=== PATIENT | female | born 1950 | race Caucasian/White ===

== ENCOUNTER 2020-03-30 21:15 | Inpatient (IN) | payer MEDICARE, OTHER ==
[~2020-03-30] VITALS: Ht 167.6 cm; Wt 113.9 kg
[2020-03-30 21:22] VITALS: BP 200/86
[2020-03-30] MEDS ORDERED: LIPITOR 20 MG T20 M1 PO (21:34)
[2020-03-30] MEDS ORDERED: CARVEDILOL12.5 MG PO (21:34)
[2020-03-30] MEDS ORDERED: NEURONTIN 300M300 M2 PO (21:35)
[2020-03-30] MEDS ORDERED: SANTYL OINTMENT30 G1 TOP (21:35)
[2020-03-30] MEDS ORDERED: HUMALOG JU100 UNIT/1 SUBQ (21:37)
[2020-03-30] MEDS ORDERED: HYDROCHLOROTHIA25 M2 PO (21:37)
[2020-03-30] MEDS ORDERED: HYDROCODON-ACE1 EAC7 PO (21:38)
[2020-03-30] MEDS ORDERED: MELOXICAM15 MG PO (21:40)
[2020-03-30] MEDS ORDERED: LEVEMIR100 UNIT/1 SUBQ (21:40)
[2020-03-30] MEDS ORDERED: SPIRONOLACTONE25 MG PO (21:41)
[2020-03-30 22:04] LABS: ABSOLUTE BASOPHILS 0.1 thou/uL (0.0-0.2); ABSOLUTE EOSINOPHILS 0.4 thou/uL (0.0-0.7); ABSOLUTE LYMPHOCYTES 2.5 thou/uL (0.8-5.3); ABSOLUTE MONOCYTES 0.6 thou/uL (0.0-1.2); ABSOLUTE NEUTROPHILS 5.3 thou/uL (1.6-8.1); BASOPHILS 0.7 %; HEMATOCRIT 39.7 % (37.0-47.0); LYMPHOCYTES 28.7 %; MCH 29.1 pg (26.0-34.0); MCHC 32.7 g/dL (28.0-37.0); MCV 89.2 fL (80.0-100.0); MONOCYTES 7.1 %; MPV 7.8 fl. (7.2-11.1); NUCLEATED RBCS 0 /100WBC; PLATELET COUNT* 186 thou/uL (150-400); POLYS 59.5 %; RBC 4.45 mil/uL (4.20-5.00); RDW-CV 13.4 % (10.5-14.5); WBC 8.8 thou/uL (4.0-11.0)
[2020-03-30 22:10] LABS: PROTIME 10.7 Seconds (9.20-11.50)
[2020-03-30 22:16] LABS: CALCIUM 8.6 mg/dL (8.5-10.1); CREATININE 1.5 mg/dL (0.6-1.3); POTASSIUM 5.2 mmol/L (3.5-5.1)
[2020-03-30 22:20] LABS: ALBUMIN 3.8 g/dL (3.4-5.0); MAGNESIUM 1.9 mg/dL (1.8-2.4); TOTAL BILIRUBIN 0.5 mg/dL (<0.1-1.0); TOTAL PROTEIN 7.8 g/dL (6.4-8.2)
[2020-03-30 23:59] LABS: BE -8.3 mmol/L (-2 to +3); PCO2 33.2 mmHg (35.0-45.0); PO2 93.7 mmHg (75.0-100.0); pH 7.322 (7.340-7.450)
[2020-03-31 01:30] VITALS: BP 126/51
[2020-03-31 02:05] VITALS: BP 138/56
[2020-03-31 02:20] LABS: URINE BILIRUBIN NEGATIVE (Negative); URINE BLOOD TRACE (Negative); URINE CLARITY CLEAR; URINE COLOR YELLOW; URINE GLUCOSE-RANDOM TRACE (Negative); URINE KETONES NEGATIVE (Negative); URINE LEUKOCYTES-REFLEX NEGATIVE (Negative); URINE NITRITE-REFLEX NEGATIVE (Negative); URINE PROTEIN NEGATIVE (Negative); URINE SPECIFIC GRAVITY 1.015 (1.005-1.030); URINE UROBILINOGEN 0.2 E.U./dl (0.2-1.0)
[2020-03-31] MEDS ORDERED: GLUCOPHAGE850 MG PO (05:37)
[2020-03-31] MEDS ORDERED: BACTRIM DS TAB1 EACH PO (05:38)
[2020-03-31 08:20] VITALS: BP 147/68
[2020-03-31 09:35] LABS: CHOLESTEROL 106 mg/dL (<200); HDL CHOLESTEROL 50 mg/dL (>40); LDL CHOLESTEROL 32 mg/dL (<100); TC:HDL 2.1 Ratio (Not establshd); TRIGLYCERIDE 123 mg/dL (<150); VLDL 25 mg/dL (<40)
[2020-03-31 09:37] LABS: SERUM ASSESSMENT Clear
[2020-03-31 12:00] VITALS: BP 144/62
--- NOTE | 2020-03-31 17:42 | 2DMMODE ---
[place] [address] 2 D/M-MODE ECHOCARDIOGRAM Name: ROGELIO MARINA Room: [address] IN [facility]#: [id number] Admission: 03/30/20 Attend Phys: Regi Gu Discharge: Date of : 46 Date of Service: 03/31/20 1741 Report #: [id number] THIS REPORT FOR: cc: Mike Arita MD, Richard K. MD Holkins, John M. MD [facility] ~ APPROVED REPORT Study performed: 03/31/2020 10:20:28 EXAM: Comprehensive 2D, Doppler, and color-flow Echocardiogram Patient Location: In-Patient Room #: [facility] Status: routine BSA: 2.20 HR: 78 bpm BP: 147/68 mmHg Rhythm: NSR Other Information Study Quality: Good Indications CAD Resp failure 2D Dimensions IVSd: 13.15 (7-11mm) LVOT Diam: 23.22 (18-24mm) LVDd: 53.02 mm PWd: 13.79 (7-11mm) Ascending Ao: 33.32 (22-36mm) LVDs: 39.98 (25-40mm) Aortic Root: 35.12 mm Volumes Left Atrial Volume (Systole) LA ESV Index: 36.40 mL/m2 Aortic Valve AoV Peak Brian.: 1.93 m/s AO Peak Gr.: 14.92 mmHg LVOT Max P.09 mmHg AO Mean Gr.: 8.61 mmHg LVOT Mean P.16 mmHg LVOT Max V: 0.72 m/s AO V2 VTI: 43.28 cm LVOT Mean V: 0.51 m/s CARLI (VTI): 1.86 cm2 LVOT V1 VTI: 18.96 [place] [address] 2 D/M-MODE ECHOCARDIOGRAM Name: ROGELIO MARINA Room: [address] [place] [facility]#: [id number] Admission: 03/30/20 Attend Phys: Regi Gu Discharge: Date of : 46 Date of Service: 03/31/20 1741 Report #: [id number] Mitral Valve E/A Ratio: 1.26 MV Decel. Time: 134.68 ms MV E Max Brian.: 1.21 m/s MV PHT: 39.06 ms MVA (PHT): 5.63 cm2 TDI E/Lateral E': 13.44 E/Medial E': 17.29 Medial E' Brian.: 0.07 m/s Lateral E' Brian.: 0.09 m/s Pulmonary Valve PV Peak Brian.: 0.90 m/s PV Peak Gr.: 3.21 mmHg Tricuspid Valve RAP Estimate: 5.00 mmHg TR Peak Gr.: 52.59 mmHg RVSP: 57.00 mmHg PA Pressure: 57.00 mmHg Left Ventricle The left ventricle is normal size. There is normal LV segmental wall motion. Borderline concentric left ventricular hypertrophy. Left ventricular systolic function is mildly decreased. LVEF is 45-50%. The left ventricular diastolic function is normal. Right Ventricle The right ventricle is normal size. The right ventricular systolic function is normal. Atria Left atrium is mildly dilated. The right atrium size is normal. Aortic Valve Mild aortic valve sclerosis. No aortic regurgitation is present. No hemodynamically significant valvular aortic stenosis. Mitral Valve Mild mitral annular calcification. Mild mitral regurgitation. No evidence of mitral valve stenosis. Tricuspid Valve The tricuspid valve is normal in structure. Mild tricuspid regurgitation. Mod[place] [address] 2 D/M-MODE ECHOCARDIOGRAM Name: ROGELIO MARINA Room: [address]#: [id number] Admission: 03/30/20 Attend Phys: Regi Gu Discharge: Date of : 46 Date of Service: 03/31/20 1741 Report #: [id number] Pulmonic Valve The pulmonary valve is normal in structure. There is no pulmonic valvular regurgitation. Great Vessels The aortic root is normal in size. IVC is normal in size and collapses >50% with inspiration. Pericardium There is no pericardial effusion. <Conclusion> The left ventricle is normal size. Borderline concentric left ventricular hypertrophy. Left ventricular systolic function is mildly decreased. LVEF is 45-50%. The right ventricle is normal size. Left atrium is mildly dilated. Mild aortic valve sclerosis. No aortic regurgitation is present. No hemodynamically significant valvular aortic stenosis. Mild mitral annular calcification. Mild mitral regurgitation. No evidence of mitral valve stenosis. The tricuspid valve is normal in structure. Mild tricuspid regurgitation. Moderate pulmonary hypertension. IVC is normal in size and collapses >50% with inspiration. There is no pericardial effusion. There is normal LV segmental wall motion. <ELECTRONICALLY SIGNED> By: Varinder Schumacher MD, FACC 03/31/201740 40 40 Varinder Schumacher MD, FACC /INF
[2020-03-31 18:34] VITALS: BP 131/46
[2020-03-31 20:14] VITALS: BP 143/58
[2020-04-01] VITALS (9 sets, daily range): BP systolic 139–161; BP diastolic 60–79
[2020-04-01 05:17] LABS: ABSOLUTE LYMPHOCYTES 1.9 thou/uL (0.8-5.3); ABSOLUTE MONOCYTES 0.6 thou/uL (0.0-1.2); ABSOLUTE NEUTROPHILS 6.3 thou/uL (1.6-8.1); BASOPHILS 0.4 %; EOSINOPHILS 0.2 %; HEMATOCRIT 35.2 % (37.0-47.0); HEMOGLOBIN 11.6 gm/dL (12.0-15.0); LYMPHOCYTES 21.2 %; MCH 28.6 pg (26.0-34.0); MCHC 32.9 g/dL (28.0-37.0); MCV 86.9 fL (80.0-100.0); MONOCYTES 6.6 %; MPV 7.7 fl. (7.2-11.1); NUCLEATED RBCS 0 /100WBC; PLATELET COUNT* 179 thou/uL (150-400); POLYS 71.6 %; RBC 4.04 mil/uL (4.20-5.00); RDW-CV 13.4 % (10.5-14.5); WBC 8.8 thou/uL (4.0-11.0)
[2020-04-01 05:24] LABS: CALCIUM 9.1 mg/dL (8.5-10.1); CREATININE 1.5 mg/dL (0.6-1.3); POTASSIUM 4.7 mmol/L (3.5-5.1)
--- NOTE | 2020-04-01 08:59 | EKG ---
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[place] : 1950 Requested By: Chelle Webster Order Number: [id number] MD: Rick Aguilar Measurements Intervals [place] Rate: 99 P: AL: QRS: -54 QRSD: 127 T: 64 QT: 397 QTc: 510 Interpretive Statements Atrial fibrillation Nonspecific IVCD with LAD Left ventricular hypertrophy Anterior infarct, old ST elevation, consider inferior injury Baseline wander in lead(s) I,II,aVR No previous ECG available for comparison Electronically Signed On 04-01-2020 8:59:10 INSULATION APPLICATOR by Rick Aguilar [email or web address] <ELECTRONICALLY SIGNED> By: Gemma Aguilar MD, FACC 04/01/2059 22 22 Gemma Aguilar MD, FAC /EPI
--- NOTE | 2020-04-01 09:00 | EKG ---
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[place] : 1950 Requested By: Chelle Webster Order Number: [id number] MD: Rick Aguilar Measurements Intervals [place] Rate: 68 P: 27 DE: 206 QRS: -56 QRSD: 137 T: 46 QT: 473 QTc: 504 Interpretive Statements Sinus rhythm Nonspecific IVCD with LAD Left ventricular hypertrophy Anterior infarct, old Compared to ECG 03/30/2020 21:23:21 Atrial fibrillation no longer present ST (T wave) deviation no longer present Myocardial infarct finding still present Electronically Signed On 04-01-2020 9:00:00 CALIBRATION ENGINEER by Rick Aguilar [email or web address] <ELECTRONICALLY SIGNED> By: Gemma Aguilar MD, FACC 04/01/20 0900 0003 0003 Gemma Aguilar MD, [facility] /EPI
--- NOTE | 2020-04-01 15:44 | EKG ---
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: : 1950 Requested By: Varinder Schumacher Order Number: [id number] Reading MD: Rick Aguilar Measurements Intervals [place] Rate: 74 P: 0 [place]: 203 QRS: -33 QRSD: 117 T: 146 QT: 419 QTc: 465 Interpretive Statements Sinus rhythm Ventricular premature complex LVH with secondary repolarization abnormality Inferior infarct, old Anterior infarct, old Compared to ECG 03/31/2020 00:03:50 Ventricular premature complex(es) now present Early repolarization now present Intraventricular conduction delay no longer present Myocardial infarct finding still present Electronically Signed On 04-01-2020 15:44:01 DIRECTOR CARDIOLOGY by Rick Aguilar [email or web address] <ELECTRONICALLY SIGNED> By: Gemma Aguilar MD, FACIndu 04/01/20 1544 1415 141 Gemma Aguilar MD, [facility] /EPI
--- NOTE | 2020-04-01 16:02 | CARD ---
[address] [address] CARDIAC CATH REPORT Name: ROGELIO MARINA Room: [address] IN [facility].#: [id number] Admission: 03/30/20 Attend Phys: Shira Li Discharge: Date of : 46 Report #: [id number] THIS REPORT FOR: //name// cc: Mike Arita MD, Richard K. MD ~ APPROVED REPORT Study performed: 04/01/2020 11:37:00 Patient Details Patient Status: In-Patient Room #: 119 The patient is a 69 year-old female Event Personnel Varinder Schumacher Otr Truck Driver, Coleen Vann RN Dianetic Counselor, Awilda Robles RTR Monitor, Melissa Kumar RTR Scrub Procedures Performed Art Access - R femoral artery, Left Heart Cath w/or w/o Coronaries LHC, LUDIVINA Place w/wo Plasty Single LAD , Hemostasis w/ Angioseal Indication Non-STEMI Risk Factors Dysplipidemia Obesity, Diabetes Admission/Lab Medications/Medications given during procedure Angiomax IV 17 ml, Angiomax Drip IV 39.83 ml per hr, Effient PO 60 mg, Aspirin PO 162 mg Procedure Narrative The patient was brought electively to the Cardiac Catheterization Laboratory and was prepped and draped in a sterile manner. The right femoral was infiltrated with 2% Lidocaine subcutaneous anesthesia. A 6F Eglon sheath was inserted into the right femoral artery. Coronary angiography was performed using coronary diagnostic catheters. The right coronary system was accessed and visualized with a 6F JR4 catheter. The left coronary system was accessed and visualized with a 6F JL4 catheter. The left ventricle was accessed and visualized with a 6F Straight Pigtail catheter. Left ventricular/Aortic Valve gradient assessed via catheter pullback. Left ventriculogram was performed in [place] [address] CARDIAC CATH REPORT Name: ROGELIO MARINA Room: [address] IN ..#: [id number] Admission: 03/30/20 Attend Phys: Shira Li Discharge: Date of : 46 Report #: [id number] femoral angiogram was performed . Closure device was deployed with a 6 Fr Angioseal STS. The patient tolerated the procedure well and there were no complications associated with the procedure. There was no hematoma. Intraoperative Conscious Sedation Sedation start time: 12:32 Case end Time: 13:23 Fentanyl 50 mcg Versed 2 mg Fluoro Time: 14.1 minutes Dose: DAP 010969 cGycm2 2392 mGy Contrast Type and Amount: Visipaque 260 ml Coronary Angiography The patient's coronary anatomy is right dominant. Diagnostic Cath Left Main 0% narrowing LAD 80% proximal and mid LAD stenoses Circumflex 30% mid vessel narrowing Right Coronary Dominant vessel with 30% proximal and distal narrowings Left Ventriculography The left ventricle is normal in size with normal contractility. The left ventricular ejection fraction is estimated to be 55%. Left ventricular wall motion abnormalities are not present. There is no mitral insufficiency. Mitral valve prolapse was noted Hemodynamics The aortic pressure is 167/73 mmHg with a mean of 108 mmHg. The left ventricular pressure is 171/13 mmHg with a mean of mmHg. The left ventricular end diastolic pressure is 31 mmHg. There was no gradient across the aortic valve upon pullback. PCI Technique Lesion Anticoagulation was achieved with Angiomax. Patient was preloaded with Angiomax IV 17 ml. Percutaneous coronary intervention was performed on the proximal left anterior descending artery segment. The lesion stenosis prior to intervention was 80% with CRAIE 3 flow. A 6F XB LAD 3.5 Guide Catheter was used to engage the lm ostium. A BMW 190cm Interventional Guidewire was used to cross the [place] [address] CARDIAC CATH REPORT Name: ROGELIO MARINA Room: [address] IN [facility]#: [id number] Admission: 03/30/20 Attend Phys: Shira Li Discharge: Date of : 46 Report #: [id number] A Balloon catheter Trek RX 2.5 X 12 was inserted and inflated up to 18.00atm for 14seconds. STENT DEPLOYMENT A drug-eluting stent Mohawk RX Stent 3.0X12mm was inserted and inflated up to 14.00atm for 13seconds. POST STENT DEPLOYMENT BALLOON DILATION A Balloon catheter NC Trek RX 3.0 X 8 was inserted and inflated up to 15.00atm for 10seconds. Additional Inflation: 17.00atm for 9seconds. Final angiography reveals 10 % stenosis with CARIE 3 flow. PCI Technique Lesion 2 Percutaneous Coronary Intervention was performed on the mid left anterior descending artery segment. Patient was preloaded with Angiomax IV 17 ml. The lesion stenosis prior to intervention was 80% with CARIE 3 flow. A 6F XB LAD 3.5 Guide Catheter was used to engage the lm ostium. A BMW 190cm Interventional Guidewire was used to cross the lesion. Balloon Dilation A Balloon catheter Trek RX 2.5 X 12 was inserted and inflated up to 12.00atm for 10seconds. Stent Deployment A drug-eluting stent John RX Stent 2.5X12mm was inserted and inflated up to 12.00atm for 8seconds. Additional Inflation: 14.00atm for 9seconds. Post Stent Deployment Balloon Dilation A Balloon catheter NC Trek RX 2.5 X 8 was inserted and inflated up to 15.00atm for 11seconds. Additional Inflation: 16.00atm for 8seconds. Final angiography reveals 0 % stenosis with CARIE 3 flow. Conclusion 1. Significant coronary artery disease characterized by the following: A 80% proximal and mid LAD stenoses B 30% [place] [address] CARDIAC CATH REPORT Name: ROGELIO MARINA Room: [address]#: [id number] Admission: 03/30/20 Attend Phys: Shira Li Discharge: Date of : 46 Report #: [id number] C dominant right coronary with 30% proximal and distal narrowings 2. Normal left ventricular systolic function, estimated ejection fraction being 55% 3. Mitral valve prolapse without significant mitral regurgitation 4. Moderate systemic systolic hypertension with significant elevation of left ventricular end diastolic pressure at rest 5. Successful PCI with deployment of drug-eluting stents at the sites of 80% proximal and mid LAD stenosis with 10 and 0% residual narrowings and CARIE-3 flow to the distal vessel Recommendations Cardiac Risk Reduction Program Aggressive Medical Therapy Medications Administered Aspirin (any) Prasugrel Diagnostic Cath Approved by: Varinder Schumacher MD Date/Time: 04/01/2020 16:00:22 <ELECTRONICALLY SIGNED> By: Varinder Schumacher MD, FACC 04/01/20 1602 01 160Varinder Schumacher MD, FACC /INF
[2020-04-02] VITALS (7 sets, daily range): BP systolic 111–154; BP diastolic 50–79
[2020-04-02 04:25] LABS: ALBUMIN 3.4 g/dL (3.4-5.0); CALCIUM 9.2 mg/dL (8.5-10.1); CREATININE 1.3 mg/dL (0.6-1.3); POTASSIUM 4.4 mmol/L (3.5-5.1); TOTAL BILIRUBIN 0.8 mg/dL (<0.1-1.0); TOTAL PROTEIN 6.7 g/dL (6.4-8.2)
[2020-04-02 04:42] LABS: ABSOLUTE EOSINOPHILS 0.3 thou/uL (0.0-0.7); ABSOLUTE LYMPHOCYTES 2.5 thou/uL (0.8-5.3); ABSOLUTE MONOCYTES 0.7 thou/uL (0.0-1.2); BASOPHILS 0.5 %; EOSINOPHILS 3.2 %; HEMATOCRIT 34.1 % (37.0-47.0); HEMOGLOBIN 11.6 gm/dL (12.0-15.0); LYMPHOCYTES 29.7 %; MCH 29.5 pg (26.0-34.0); MCHC 33.9 g/dL (28.0-37.0); MCV 86.9 fL (80.0-100.0); MONOCYTES 8.1 %; MPV 7.7 fl. (7.2-11.1); NUCLEATED RBCS 0 /100WBC; PLATELET COUNT* 157 thou/uL (150-400); POLYS 58.5 %; RBC 3.92 mil/uL (4.20-5.00); RDW-CV 13.4 % (10.5-14.5); WBC 8.5 thou/uL (4.0-11.0)
[2020-04-02] MEDS ORDERED: NITROGLYCERIN0.4 MG SUBLING (08:38)
[2020-04-02] MEDS ORDERED: EFFIENT10 MG PO (08:38)
[2020-04-02] MEDS ORDERED: ASPIR 8181 MG PO (08:38)
--- NOTE | 2020-04-02 13:19 | EKG ---
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: [place] : 1950 Requested By: Varinder Schumacher Order Number: [id number] Reading MD: Varinder Schumacher Measurements Intervals [place] Rate: 71 P: 26 SC: 191 QRS: -65 QRSD: 120 T: 69 QT: 460 QTc: 500 Interpretive Statements Sinus rhythm Ventricular premature complex Nonspecific IVCD with LAD Left ventricular hypertrophy Inferior infarct, old Anterior infarct, old Compared to ECG 04/01/2020 14:15:42 Intraventricular conduction delay now present Early repolarization no longer present Myocardial infarct finding still present Electronically Signed On 04-02-2020 13:19:24 SANITATION ASSOCIATE by Varinder Schumacher [email or web address] <ELECTRONICALLY SIGNED> By: Varinder Schumacher MD, FACC 04/02/20 1319 9 9 Varinder Schumacher MD, FACC /EPI
== END 2020-04-02 13:30 | disposition home health service (06) | DRG 246 ==
LOC: M.ERS 21:15 → M.TBA-ER 23:55 → M.ORTHSURG 23:55 → M.2W 04-01 15:58
PROVIDERS: Emergency Medicine; Internal Medicine; Registered Nurse; ADMIT Internal Medicine; ATTEND Internal Medicine
PROC: 027035Z Dilation of Coronary Artery, One Artery with Two Drug-eluting Intraluminal Devices, Percutaneous Approach (ICD-10-PCS; principal; 2020-04-01)
PROC: 4A023N7 Measurement of Cardiac Sampling and Pressure, Left Heart, Percutaneous Approach (ICD-10-PCS; principal; 2020-04-01)
PROC: B215YZZ Fluoroscopy of Left Heart using Other Contrast (ICD-10-PCS; principal; 2020-04-01)
PROC: B211YZZ Fluoroscopy of Multiple Coronary Arteries using Other Contrast (ICD-10-PCS; principal; 2020-04-01)
DX: I21.4 Non-ST elevation (NSTEMI) myocardial infarction (principal); J15.6 Pneumonia due to other Gram-negative bacteria; I50.43 Acute on chronic combined systolic (congestive) and diastolic (congestive) heart failure; J96.00 Acute respiratory failure, unspecified whether with hypoxia or hypercapnia; I13.0 Hypertensive heart and chronic kidney disease with heart failure and stage 1 through stage 4 chronic kidney disease, or unspecified chronic kidney disease; N17.9 Acute kidney failure, unspecified; E11.65 Type 2 diabetes mellitus with hyperglycemia; N18.9 Chronic kidney disease, unspecified; E11.22 Type 2 diabetes mellitus with diabetic chronic kidney disease; E78.5 Hyperlipidemia, unspecified; E87.5 Hyperkalemia; I25.10 Atherosclerotic heart disease of native coronary artery without angina pectoris; Z20.828 Contact with and (suspected) exposure to other viral communicable diseases; Z79.4 Long term (current) use of insulin; Z79.899 Other long term (current) drug therapy; Z88.5 Allergy status to narcotic agent

== ENCOUNTER 2020-04-22 19:56 | Inpatient (IN) | payer MEDICARE, OTHER ==
[~2020-04-22] VITALS: Ht 167.6 cm; Wt 101.6 kg
--- NOTE | ~2020-04-22 | EMS ---
[address] [address] EMS Patient Care Report Name: ROGELIO MARINA Room: [facility] Alfa#: [id number] Admission: 04/22/20 Attend Phys: Discharge: Date of : 46 Report #: [id number] THIS REPORT FOR: //name// Report Transmitted: 04/22/2020 20:37 EMS Care Summary [facility] [place] Incident [id number] @ 04/22/2020 19:08 Incident Location [address] [place] [address] Patient Rogelio Marina Female, 69 Years 1950 Patient Address [address] [place] [address] Patient History Presence of coronary angioplasty implant and graft,Endocrine Condition - Other,Hypertension (HTN), Patient Allergies , Patient Medications Toprol, Chief Complaint Weakness Disposition Transported No Lights/[place] Dispatch Reason Falls Transported To [facility] Narrative pt found a/o sitting upright on floor in living room. pt explained that she was trying to stand to answer door when her legs gave out and she fell striking her back on a bookshelf. She said that she may have felt dizzy before the fall but [address] [address] EMS Patient Care Report Name: ROGELIO MARINA Room: [facility] Alfa#: [id number] Admission: 04/22/20 Attend Phys: Discharge: Date of : 46 Report #: [id number] she cannot remember. She denied sob, denied chest pain, denied hitting her head. She said that she has been weak since present day evening, but not this morning. She said that she has developed chills and body aches. She has not had a cough, no sore throat. Vitals assessed. Pt is assisted to stand and step to EMS cot immediately outside her front door. pt secured with all straps. In ambulance 12 lead obtained, iv access established and transport commenced to [facility]. en route, pt rested on ems cot and was conversational and weak. Radio report called, vitals reassessed. Upon arrival, pt condition unchanged. transport signature obtained. pt escorted inside where she was transferred to er bed via draw sheet. care transferred. Initial Vitals @19:17SpO2: 94, @19:25SpO2: 94, @19:27SpO2: 97, @19:30SpO2: 93, @19:28 @19:31 @19:32 @19:14P: 103,R: 22,BP: 173/80, @19:48P: 97,R: 18,BP: 164/90, @19:14GCS: 15, @19:48GCS: 15, @19:33Glucose: 226, Assessments @19:14MENTAL:SKIN:HEENT:LUNG SOUNDS:ABDOMEN:PELVIS//GI:EXTREMITIES:PULSE:NEURO: Impression Generalized Weakness Procedures @19:32 cc () Site: Forearm-LeftResponse: UnchangedSucceeded@19:2812-Lead ECGResponse: UnchangedSucceeded@19:3112-Lead ECGResponse: UnchangedSucceeded@19:323-Lead ECGResponse: UnchangedSucceeded Timeline 15:14,Call Received 19:08,Dispatch Notified 19:08,Psap Call 19:08,Dispatched 19:08,En Route 19:13,On Scene 19:14,At Patient 19:14,BP: 173/80 M,PULSE: 103,RR: 22 R,SPO2: Ox,ETCO2: ,BG: ,PAIN: ,GCS: , [place] [address] EMS Patient Care Report Name: MARINACHRISRashawn Alvarez Room: [facility]#: [id number] Admission: 04/22/20 Attend Phys: Discharge: Date of : 46 Report #: [id number] 19:14,BP: / M,PULSE: ,RR: R,SPO2: Ox,ETCO2: ,BG: ,PAIN: ,GCS: 15, 19:17,BP: / M,PULSE: ,RR: R,SPO2: 94 Ox,ETCO2: ,BG: ,PAIN: ,GCS: , 19:25,BP: / M,PULSE: ,RR: R,SPO2: 94 Ox,ETCO2: ,BG: ,PAIN: ,GCS: , 19:27,BP: / M,PULSE: ,RR: R,SPO2: 97 Ox,ETCO2: ,BG: ,PAIN: ,GCS: , 19:28,12-Lead ECG,Response: UnchangedSucceeded, 19:28,BP: / M,PULSE: ,RR: R,SPO2: Ox,ETCO2: ,BG: ,PAIN: ,GCS: , 19:30,BP: / M,PULSE: ,RR: R,SPO2: 93 Ox,ETCO2: ,BG: ,PAIN: ,GCS: , 19:31,12-Lead ECG,Response: UnchangedSucceeded, 19:31,BP: / M,PULSE: ,RR: R,SPO2: Ox,ETCO2: ,BG: ,PAIN: ,GCS: , 19:32, cc Site: Forearm-Left,Response: UnchangedSucceeded, 19:32,3-Lead ECG,Response: UnchangedSucceeded, 19:32,BP: / M,PULSE: ,RR: R,SPO2: Ox,ETCO2: ,BG: ,PAIN: ,GCS: , 19:33,BP: / M,PULSE: ,RR: R,SPO2: Ox,ETCO2: ,B,PAIN: ,GCS: , 19:35,Depart Scene 19:48,BP: 164/90 M,PULSE: 97,RR: 18 R,SPO2: Ox,ETCO2: ,BG: ,PAIN: ,GCS: , 19:48,BP: / M,PULSE: ,RR: R,SPO2: Ox,ETCO2: ,BG: ,PAIN: ,GCS: 15, 19:51,At Destination 20:15,Call Closed Disclaimer v1.1 Copyright 2020 [employer], [employer] This EMS Care Summary contains data elements from the applicable legal record (which may be displayed differently). It is designed to provide pertinent information for the following purposes: continuity of care, clinical quality, and state data reporting. The complete legal record is available to ED staff and administrators of the receiving hospital in [employer] Patient Tracker. All data is provided "as is."
--- NOTE | ~2020-04-22 | PROC ---
[address] [address] PROCEDURE REPORT Name: ROGELIO MARINA Room: [address] IN M.R.#: [id number] Admission: 04/22/20 Attend Phys: Shira Li Discharge: 04/25/20 Date of : 46 Report #: [id number] THIS REPORT FOR: cc: Mike Arita MD, Richard K. MD ~ [facility],Medical Records Staff For GI report, please see the Provation report in Perceptive 7 content. By: 1451Medical Records Staff [facility] /ALMA
[2020-04-22 19:56] VITALS: BP 249/110
[~2020-04-22 19:56] MED LIST: ASPIR 8181 MG PO; BACTRIM DS TAB1 EACH PO; CARVEDILOL12.5 MG PO; EFFIENT10 MG PO; GLUCOPHAGE850 MG PO; HUMALOG JU100 UNIT/1 SUBQ; HYDROCHLOROTHIA25 M2 PO; HYDROCODON-ACE1 EAC7 PO; LEVEMIR100 UNIT/1 SUBQ; LIPITOR 20 MG T20 M1 PO; MELOXICAM15 MG PO; NEURONTIN 300M300 M2 PO; NITROGLYCERIN0.4 MG SUBLING; SANTYL OINTMENT30 G1 TOP; SPIRONOLACTONE25 MG PO
[2020-04-22] MEDS ORDERED: MELOXICAM15 MG PO ×2 (20:03)
[2020-04-22] MEDS ORDERED: HYDROCHLOROTHIA25 M2 PO ×2 (20:03)
[2020-04-22] MEDS ORDERED: EFFIENT5 MG PO ×2 (20:04)
[2020-04-22 20:53] LABS: INFLUENZA A ANTIGEN Negative (Negative); INFLUENZA B ANTIGEN Negative (Negative)
[2020-04-22 20:56] LABS: HEMATOCRIT 37.7 % (37.0-47.0); HEMOGLOBIN 12.5 gm/dL (12.0-15.0); MCH 28.9 pg (26.0-34.0); MCHC 33.3 g/dL (28.0-37.0); MCV 86.9 fL (80.0-100.0); MPV 7.6 fl. (7.2-11.1); NUCLEATED RBCS 0 /100WBC; PLATELET COUNT* 164 thou/uL (150-400); RBC 4.34 mil/uL (4.20-5.00); RDW-CV 13.8 % (10.5-14.5); WBC 21.3 thou/uL (4.0-11.0)
[2020-04-22 21:04] LABS: CALCIUM 8.9 mg/dL (8.5-10.1); CREATININE 1.5 mg/dL (0.6-1.3); POTASSIUM 5.7 mmol/L (3.5-5.1)
[2020-04-22 21:07] LABS: APTT 22.6 Seconds (25.0-31.3)
[2020-04-22 21:08] LABS: ALBUMIN 3.6 g/dL (3.4-5.0); TOTAL BILIRUBIN 1.1 mg/dL (<0.1-1.0)
[2020-04-22 21:09] LABS: INR 1.1; PROTIME 11.3 Seconds (9.20-11.50)
[2020-04-22 21:26] LABS: ABSOLUTE LYMPHOCYTES 0.4 thou/uL (0.8-5.3); ABSOLUTE MONOCYTES 0.4 thou/uL (0.0-1.2); ABSOLUTE NEUTROPHILS 20.4 thou/uL (1.6-8.1)
[2020-04-22 21:28] LABS: PLATELET ESTIMATE ADEQUATE
[2020-04-22 23:54] VITALS: BP 158/70
[2020-04-23 00:30] VITALS: BP 120/57
[2020-04-23 04:00] VITALS: BP 138/58
--- NOTE | 2020-04-23 05:13 | NUR ---
PT RECIEVED FORM ED IN ROOM 232. ALERT AND ORIENTED X4. C/O PAIN, MEDICATION GIVEN PER EMAR. CALL LIGHT WITHIN REACH AND BED IN LOW POSITION. HOURLY ROUNDING DONE FOR PT SAFETY.
[2020-04-23 05:48] LABS: HEMATOCRIT 34.9 % (37.0-47.0); HEMOGLOBIN 11.3 gm/dL (12.0-15.0); MCH 28.7 pg (26.0-34.0); MCHC 32.4 g/dL (28.0-37.0); MCV 88.4 fL (80.0-100.0); RBC 3.94 mil/uL (4.20-5.00); RDW-CV 13.7 % (10.5-14.5); WBC 17.9 thou/uL (4.0-11.0)
[2020-04-23 05:57] LABS: ALBUMIN 3.2 g/dL (3.4-5.0); CALCIUM 7.7 mg/dL (8.5-10.1); CREATININE 1.4 mg/dL (0.6-1.3); TOTAL BILIRUBIN 0.7 mg/dL (<0.1-1.0); TOTAL PROTEIN 6.2 g/dL (6.4-8.2)
[2020-04-23 06:02] LABS: POTASSIUM 6.1 mmol/L (3.5-5.1)
[2020-04-23 08:00] VITALS: BP 121/49
--- NOTE | 2020-04-23 10:13 | NUR ---
CM SPOKE TO THE PT TO DISCUSS CM ASSESSMENT. PT KNOW TO THIS CM FROM PREVIOUS ADMISSION. PT A&O, INDEPENDENT WITH ADL'S, ACTIVE AND DRIVES. PT RESIDES AT HOME ALONE. HH ARRANGED FOR PT AT LIST D/C. HOWEVER PT DECLINED HH ONCE AT HOME. 0 SNF HX. CM WILL REMAIN AVAILABLE TO ASSIST AND FOLLOW NEEDED.
[2020-04-23 12:32] VITALS: BP 115/43
--- NOTE | 2020-04-23 14:24 | CON ---
[address] [address] CONSULTATION Name: ROGELIO MARINA Room: [address] IN M.R.#: [id number] Admission: 04/22/20 Attend Phys: Shira Li Discharge: Date of : 46 Report #: [id number] THIS REPORT FOR: cc: Mike Arita MD, Richard K. MD ~ Nelli Mcdaniel MD DATE OF SERVICE: 04/23/2020 Please note at the time of this dictation, the patient was seen and physically examined by myself. REASON FOR CONSULTATION: Nausea, dry heaves and abnormal CT. HISTORY OF PRESENT ILLNESS: This is a 69-year-old female who presented to the Emergency Room with feeling very weak. She developed nausea with dry heaves, body aches and chills. She states that she was having some back pain after she sustained a fall prior to her arrival when she felt very weak to go to answer the door. She said she fell, struck the back part of her head. At that time, she was unsure if she struck the back of her head. She has been having nausea with dry heaves. She states her bowels move every other day. They are hard and she does have to force a little bit of an evacuation. She denies any abdominal pain. She denies any issues with acid reflux nor does she take anything for that. No coughing in the middle of the night or bad taste in her mouth. She is also having some swelling and redness in her right lower extremity that she has noted as well. The patient denies ever having an upper or lower scope done in the past. ALLERGIES: CODEINE. MEDICATIONS FROM HOME: Effient, aspirin, atorvastatin, carvedilol, Neurontin, Humalog, Glucophage, hydrochlorothiazide, meloxicam, and spironolactone. PAST MEDICAL HISTORY: Hypertension, diabetes, neuropathy, arthritis, history of coronary artery disease. PAST SURGICAL HISTORY: She has had stents in the past. FAMILY HISTORY: Negative for any GI or female cancers. SOCIAL HISTORY: Denies any alcohol, tobacco or illegal drug use. REVIEW OF SYSTEMS: Twelve-point review of systems is essentially negative except what [place] [address] CONSULTATION Name: ROGELIO MARINA Room: [address] IN [facility].#: [id number] Admission: 04/22/20 Attend Phys: Shira Li Discharge: Date of : 46 Report #: [id number] PHYSICAL EXAMINATION: VITAL SIGNS: Temperature 36.7, pulse 91, respirations 20, blood pressure 138/58. HEART: Regular rate and rhythm. LUNGS: Diminished, but clear. ABDOMEN: Soft, positive bowel sounds in all 4 quadrants with no masses or tenderness noted. LABORATORY DATA: Hemoglobin 12.5 on admission, she is 11.3, white count is 17.9, platelets is 143. GFR is 37 with a BUN of 20 and creatinine 1.4. She did have a slight elevation of her troponin at 0.54, Cardiology is on board. CT scan showed slight thickening in the lower esophagus and also wall thickening noted in the descending colon. IMPRESSION: 1. Nausea, dry heaves. 2. Abnormal CT, upper wall thickening in the lower esophagus as well as wall thickening in the descending colon. 3. Constipation. 4. Leukocytosis. 5. Elevated troponin. 6. Anticoagulant therapy, Effient. History of stents. PLAN: 1. EGD and colonoscopy tomorrow. We will obtain cardiac clearance. 2. Clear liquid diet. 3. Prep today. 4. Further recommendations to be made once the procedure has been performed. Thank you for allowing us to participate in this patient's care. Please do not hesitate to call with any questions in regard to this consult. <ELECTRONICALLY SIGNED> By: Nelli Mcdaniel MD 04/23/20 1424 1005 [id number] Mcdaniel MD /nt
[2020-04-23 16:57] VITALS: BP 110/46
--- NOTE | 2020-04-23 18:21 | EKG ---
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1950 Requested By: C[place] Order Number: [id number] MD: Rick Aguilar Measurements Intervals [place] Rate: 96 P: 3 [place]: 188 QRS: -63 QRSD: 125 T: 43 QT: 389 QTc: 492 Interpretive Statements Sinus rhythm IVCD, consider atypical RBBB Left ventricular hypertrophy Inferior infarct, old Anterior infarct, old Compared to ECG 04/02/2020 08:40:04 Ventricular premature complex(es) no longer present Myocardial infarct finding still present Electronically Signed On 04-23-2020 18:21:23 GAME ATTENDANT by Rick Aguilar [email or web address] <ELECTRONICALLY SIGNED> By: Gemma Aguilar MD, FACC 04/23/20 1821 99 99 Gemma Aguilar MD, FACC /EPI
--- NOTE | 2020-04-23 18:40 | NUR ---
RECEIVED REPORT. ASSUMED CARE OF PT AROUND 0730. AM ASSESSMENT AND VITALS COMPLETED CHARTED. POST SECONDARY PROFESSIONAL IN PLACE. MEDS PER EMAR. IV PAIN MEDICATION GIVEN FOR COMPLAINT OF BACK PAIN WITH RELIEF. GI ROUNDED - PLAN IS FOR PT TO HAVE EGD/COLON TOMORROW - PREP IN PROGRESS. PT ABLE TO TOLERATE CLRS THIS SHIFT, BUT DID HAVE EMESIS X1 THIS EVENING DURING BOWEL PREP. DENIED NEED FOR MEDICATION FOR NAUSEA. CARDIOLOGY OKAY WITH TOMORROWS PROCEDURES. PT UP WITH SBA TO BEDSIDE COMMODE AND WAS UP IN BEDSIDE CHAIR MOST OF THE SHIFT. ABLE TO SHIFT HER OWN WEIGHT. FALL PRECAUTIONS IN PLACE. CALL LIGHT IS WITHIN REACH. HOURLY ROUNDING PERFORMED.
[2020-04-23 20:30] VITALS: BP 134/54
[2020-04-24] VITALS: BP 127/56
[2020-04-24 04:00] VITALS: BP 121/76
[2020-04-24 04:33] LABS: HEMATOCRIT 32.6 % (37.0-47.0); HEMOGLOBIN 10.9 gm/dL (12.0-15.0); MCH 29.4 pg (26.0-34.0); MCHC 33.4 g/dL (28.0-37.0); MCV 87.8 fL (80.0-100.0); MPV 7.8 fl. (7.2-11.1); RBC 3.71 mil/uL (4.20-5.00); WBC 12.2 thou/uL (4.0-11.0)
[2020-04-24 05:18] LABS: ALBUMIN 2.7 g/dL (3.4-5.0); CALCIUM 8.1 mg/dL (8.5-10.1); CREATININE 1.2 mg/dL (0.6-1.3); MAGNESIUM 1.6 mg/dL (1.8-2.4); POTASSIUM 3.5 mmol/L (3.5-5.1); TOTAL BILIRUBIN 0.7 mg/dL (<0.1-1.0); TOTAL PROTEIN 6.7 g/dL (6.4-8.2)
--- NOTE | 2020-04-24 05:53 | NUR ---
PT CARE ASSUMED AT 1930. SAT MAINTAINED IN RA. ALERT AND ORIENTED X4. C/O PAIN, MEDICTAION GIVEN PER EMAR. PT REFUSED DRINKING 1/4TH OF BOWEL PREP, EDUCATION GIVEN, NEEDS REINFORCEMENT. CALL LIGHT WITHIN REACH AND BED IN LOW POSITION. HOURLY ROUNDING DONE FOR PT SAFETY.
[2020-04-24 08:00] VITALS: BP 140/65
[2020-04-24 09:03] VITALS: BP 121/76
--- NOTE | 2020-04-24 13:31 | NUR ---
WOUND NURSE: PATIENT SEEN TO ADDRESS DIABETIC WOUNDS COMPLICATED WITH CELLULITIS ON THE RIGHT LOWER LEG. PRESENTS WITH 2 CIRCIFORM LESIONS, PROXIMAL MEASURING 1.7. X 1.1 X 0.2 CM AND DISTAL MEASURING 1.5 X 1.2 X 0.2 CM. CONAINS RED, NONGRANULATING TISSUE IN THE WOUND BED, AND SMALL AMOUNT OF SEROUSANGUINOUS DRAINAGE. RLE PRESENTS WITH PAIN, REDNESS, SWELLING, AND WARM TO TOUCH. CHECKED GIRTH MEASUREMENTS AND WERE FOLLOWS LEFT TO RIGHT: FOREFOOT: 24 AND 26 CM; ANKLE: 23 AND 26 CM; CALF: 39.5 AND 43 CM. CLEANSED WITH WOUND CLEANSER AND GAUZE. PATIENT REPORTING THE WOUNDS WILL BE ONE WEEK OLD TOMORROW. APPLIED THERAHONEY TO EACH WOUND BED, THEN COVERED WITH BORDERED FOAM DRESSING. APPLIED SINGLE LAYER OF SIZE E TUBIGRIP TO RLE TOES TO KNEE TO ASSIST WITH EDEMA CONTROL. PATIENT INSTRUCTED ON MEASURES TO PROMOTE HEALING AND PREVENT FURTHER COMPLICATIONS WITH GOOD UNDERSTANDING ACHIEVED. PATIENT SCHEDULED TO BE FOLLOWED IN THE WOUND CENTER NEXT WEEK HERE AT [facility] TO SEE DR. Heena MAYNARD DPM ON TUESDAY AFTERNOON AT 1:00 PM. PATIENT AGREED TO THIS AND WAS PROVIDED THE INFORMATION.
--- NOTE | 2020-04-24 13:33 | NUR ---
CM INFORMED DURING PRIME ROUNDING OF THE PLAN OF CARE FOR THE PT. GI CONSULTED. PLAN FOR PT TO HAVE EGD COLONOSCOPY TODAY. NO D/C PLANNING NEEDS ANTICIPATED. CM WILL REMAIN AVAILABLE TO ASSIST AND FOLLOW FOR D/C PLANNING NEEDS.
[2020-04-24 16:00] VITALS: BP 110/56
[2020-04-24 17:20] LABS: URINE BILIRUBIN NEGATIVE (Negative); URINE BLOOD NEGATIVE (Negative); URINE CLARITY CLEAR; URINE COLOR YELLOW; URINE GLUCOSE-RANDOM NEGATIVE (Negative); URINE KETONES TRACE (Negative); URINE LEUKOCYTES-REFLEX NEGATIVE (Negative); URINE NITRITE-REFLEX NEGATIVE (Negative); URINE PROTEIN TRACE (Negative); URINE SPECIFIC GRAVITY 1.025 (1.005-1.030); URINE UROBILINOGEN 0.2 E.U./dl (0.2-1.0)
--- NOTE | 2020-04-24 18:55 | NUR ---
RECEIVED REPORT. ASSUMED CARE OF PT AROUND 0730. AM ASSESSMENT AND VITALS COMPLETED CHARTED. 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 MEDS PER EMAR. PT COMPLETED EGD AND COLONOSCOPY THIS SHIFT. TOLERATING DIET SINCE THEN. UP WITH ASSISTANCE TO BEDSIDE COMMODE TO VOID AND HAVE BM'S. ANA PERFORMED WOUND CARE THIS SHIFT ON RLE. UA SENT DOWN. PT HOPEFUL TO GO HOME TOMORROW. UPDATE GIVEN TO FAMILY. PT ALSO TALKING WITH FAMILY. PT CURRENTLY RESTING IN BED. FALL PRECAUTIONS IN PLACE. HOURLY ROUNDING PERFORMED. CALL LIGHT WITHIN REACH.
[2020-04-24 20:00] VITALS: BP 139/60
[2020-04-25] VITALS: BP 139/62
[2020-04-25 04:00] VITALS: BP 136/52
[2020-04-25 04:41] LABS: HEMATOCRIT 28.9 % (37.0-47.0); HEMOGLOBIN 9.8 gm/dL (12.0-15.0); MCH 29.6 pg (26.0-34.0); MCV 87.2 fL (80.0-100.0); MPV 7.8 fl. (7.2-11.1); RBC 3.32 mil/uL (4.20-5.00); RDW-CV 13.8 % (10.5-14.5); WBC 9.9 thou/uL (4.0-11.0)
[2020-04-25 04:52] LABS: CALCIUM 8.2 mg/dL (8.5-10.1); CREATININE 1.2 mg/dL (0.6-1.3); POTASSIUM 3.9 mmol/L (3.5-5.1)
--- NOTE | 2020-04-25 07:05 | NUR ---
CHANGE OF SHIFT REPORT GIVEN PATIENT SEEN AT BEDSIDE, IN BED ASLEEP ASSUMED PATIENT CARE
[2020-04-25 08:00] VITALS: BP 105/64; BP 117/52
[2020-04-25] MEDS ORDERED: LISINOPRIL2.5 MG PO ×2 (08:21)
[2020-04-25] MEDS ORDERED: PROTONIX40 M2 PO ×2 (08:21)
[2020-04-25] MEDS ORDERED: KEFLEX500 M1 PO ×2 (08:21)
[2020-04-25 10:36] VITALS: BP 117/52
--- NOTE | 2020-04-29 14:07 | PATH ---
[address] [address] PATHOLOGY RPT PROCEDURE Name: ROGELIO MARINA Room: [address] IN .R.#: [id number] Admission: 04/22/20 Date of : 46 Discharge: 04/25/20 Report #: [id number] Path Case #: [id number] [facility] Accession Number: [id number] . 01 Material submitted: . PART A: duodenum - DUODENAL BIOPSY FOR DUODENAL ULCER AND DUODENITIS PART B: stomach - ANTRAL LESION BIOPSY SUSPICION FOR PANCREATIC REST PART C: stomach - GASTRIC BIOPSY FOR GASTRITIS . 01 Clinician provided ICD-10: A41.9 E43 . 01 Clinical history: . SEPSIS, CELLULITIS RIGHT LEG, ELEVATED TROP . 02 Diagnosis: A. Small intestine "duodenal ulcer/duodenitis", endoscopic biopsy: - Duodenal mucosa with focal surface erosion, reactive changes of surface epithelium, glandular dropout, focal villous blunting, and chronic active inflammation. - Negative for dysplasia and malignancy. . B. Stomach "antral lesion", endoscopic biopsy: - Gastric antral mucosa with surface erosion, glandular dropout, chronic active inflammation and focal reactive foveolar hyperplasia. - Prominent eosinophils within lamina propria. - Negative for H. pylori. - Please see comment. . C. Stomach "gastritis", endoscopic biopsy: - Gastric oxyntic mucosa with features of mild to moderate chronic gastritis. - Negative for active inflammation, intestinal metaplasia, dysplasia, and malignancy. - Negative for Helicobacter pylori. . (YAYA:ellyn; 04/28/2020) [facility] 04/29/2020 1327 Local . 02 Comment: Biopsy of the gastric antrum (specimen B) shows features of chronic active gastritis with associated reactive changes and a prominent eosinophil infiltrate. Increased eosinophils within the gastric mucosa raises a question of an allergic process. Clinical correlation is suggested. . A pancreatic rest/heterotopia [place] [address] PATHOLOGY RPT PROCEDURE Name: ROGELIO MARINA Room: [address]#: [id number] Admission: 04/22/20 Date of : 46 Discharge: 04/25/20 Report #: [id number] Path Case #: [id number] (MERRYK:ellyn; 04/28/2020) . 02 Electronically signed: . Neli Cohen MD, Pathologist NPI- [id number] . 01 Gross description: . A. The specimen is received in formalin, labeled "Marina, Rogelio, duodenal biopsy" and consists of 3 fragments of pink-barraza tissue measuring between 0.1 x 0.1 cm 0.3 x 0.3 cm which are entirely submitted in A1. . B. The specimen is received in formalin, labeled "Marina, Rogelio, antral lesion biopsy" and consists of multiple fragments of barraza tissue measuring 0.6 x 0.5 x 0.2 cm aggregate which are entirely submitted in B1. . C. The specimen is received in formalin, labeled "Marina, Rogelio, gastric biopsy" and consists of multiple fragments of pink-barraza tissue measuring 1.2 x 0.7 x 0.3 cm in aggregate which are entirely submitted in C1. (SDY; 04/25/2020) [facility]U 04/25/2020 1410 Local . 02 Microscopic: . Immunohistochemical stain results (properly controlled): Helicobacter pylori (B1, C1) - negative for organisms. (MLK:auto body estimator; 04/28/2020) . 02 Pathologist provided ICD-10: K26.9, K29.80, K25.9, K29.50 . 02 CPT . 292619, 349683, 233087, J17449 Specimen Comment: A courtesy copy of this report has been sent to [phone] Specimen Comment: [phone] Specimen Comment: Report sent to / DR LLOYD Performed at: 01 [facility] [address], [place], [place] [id number] MD Kevan Marin MD Phone: [phone] Performed at: 02 [facility] [place] [address], [place], [place] [id number] MD Lj Marshall MD Phone: [phone]
== END 2020-04-25 11:00 | disposition home or self-care (01) | DRG 871 ==
LOC: M.ERS 19:56 → M.2W 22:20 → M.TBA-ER 22:20 → M.2W 23:44
PROVIDERS: Internal Medicine; Nurse Practitioner Family; ADMIT Internal Medicine; ATTEND Internal Medicine
PROC: 0DJD8ZZ Inspection of Lower Intestinal Tract, Via Natural or Artificial Opening Endoscopic (ICD-10-PCS; principal; 2020-04-24)
PROC: 0DB98ZX Excision of Duodenum, Via Natural or Artificial Opening Endoscopic, Diagnostic (ICD-10-PCS; principal; 2020-04-24)
PROC: 0DB68ZX Excision of Stomach, Via Natural or Artificial Opening Endoscopic, Diagnostic (ICD-10-PCS; principal; 2020-04-24)
DX: A41.9 Sepsis, unspecified organism (principal); E43 Unspecified severe protein-calorie malnutrition; L03.115 Cellulitis of right lower limb; I16.1 Hypertensive emergency; I50.22 Chronic systolic (congestive) heart failure; E11.40 Type 2 diabetes mellitus with diabetic neuropathy, unspecified; M19.90 Unspecified osteoarthritis, unspecified site; E11.65 Type 2 diabetes mellitus with hyperglycemia; I25.10 Atherosclerotic heart disease of native coronary artery without angina pectoris; K59.00 Constipation, unspecified; E66.9 Obesity, unspecified; K52.9 Noninfective gastroenteritis and colitis, unspecified; I11.0 Hypertensive heart disease with heart failure; K63.9 Disease of intestine, unspecified; E87.5 Hyperkalemia; K76.89 Other specified diseases of liver; T50.995A Adverse effect of other drugs, medicaments and biological substances, initial encounter; K44.9 Diaphragmatic hernia without obstruction or gangrene; K29.70 Gastritis, unspecified, without bleeding; K31.89 Other diseases of stomach and duodenum; K26.9 Duodenal ulcer, unspecified as acute or chronic, without hemorrhage or perforation; E78.5 Hyperlipidemia, unspecified; E11.51 Type 2 diabetes mellitus with diabetic peripheral angiopathy without gangrene; Z95.5 Presence of coronary angioplasty implant and graft; Z79.899 Other long term (current) drug therapy; Z79.4 Long term (current) use of insulin; Z88.5 Allergy status to narcotic agent; Z68.36 Body mass index [BMI] 36.0-36.9, adult

== ENCOUNTER → 2020-04-28 | Outpatient (CLI) | payer MEDICARE, OTHER ==
[~2020-04-28] MED LIST changes: +EFFIENT5 MG PO; +KEFLEX500 M1 PO; +LISINOPRIL2.5 MG PO; +PROTONIX40 M2 PO
== END ==
LOC: M.WC 13:00
PROVIDERS: ATTEND Podiatrist Foot & Ankle Surgery
DX: E11.622 Type 2 diabetes mellitus with other skin ulcer (principal); L97.812 Non-pressure chronic ulcer of other part of right lower leg with fat layer exposed; L97.212 Non-pressure chronic ulcer of right calf with fat layer exposed; L03.115 Cellulitis of right lower limb; E11.40 Type 2 diabetes mellitus with diabetic neuropathy, unspecified; I10 Essential (primary) hypertension; I25.10 Atherosclerotic heart disease of native coronary artery without angina pectoris; M19.90 Unspecified osteoarthritis, unspecified site; E66.9 Obesity, unspecified; Z68.37 Body mass index [BMI] 37.0-37.9, adult; Z79.4 Long term (current) use of insulin; Z95.5 Presence of coronary angioplasty implant and graft; Z98.49 Cataract extraction status, unspecified eye

== ENCOUNTER → 2020-05-05 | Outpatient (CLI) | payer MEDICARE, OTHER | LOC: M.WC 12:27 | PROVIDERS: ATTEND Podiatrist Foot & Ankle Surgery | DX: E11.622 Type 2 diabetes mellitus with other skin ulcer (principal); L97.812 Non-pressure chronic ulcer of other part of right lower leg with fat layer exposed; L97.212 Non-pressure chronic ulcer of right calf with fat layer exposed; L03.115 Cellulitis of right lower limb; E11.40 Type 2 diabetes mellitus with diabetic neuropathy, unspecified; M19.90 Unspecified osteoarthritis, unspecified site; I25.10 Atherosclerotic heart disease of native coronary artery without angina pectoris; I10 Essential (primary) hypertension; E66.9 Obesity, unspecified; Z68.37 Body mass index [BMI] 37.0-37.9, adult; Z79.4 Long term (current) use of insulin ==

== ENCOUNTER → 2020-05-12 | Outpatient (CLI) | payer MEDICARE, OTHER | LOC: M.WC 13:00 | PROVIDERS: ATTEND Podiatrist Foot & Ankle Surgery | DX: E11.622 Type 2 diabetes mellitus with other skin ulcer (principal); L97.812 Non-pressure chronic ulcer of other part of right lower leg with fat layer exposed; L97.212 Non-pressure chronic ulcer of right calf with fat layer exposed; L03.115 Cellulitis of right lower limb; E11.40 Type 2 diabetes mellitus with diabetic neuropathy, unspecified; I25.10 Atherosclerotic heart disease of native coronary artery without angina pectoris; I10 Essential (primary) hypertension; E66.9 Obesity, unspecified; M19.90 Unspecified osteoarthritis, unspecified site; Z68.37 Body mass index [BMI] 37.0-37.9, adult; Z79.4 Long term (current) use of insulin ==

== ENCOUNTER 2020-11-10 05:15 | Inpatient (IN) | payer MEDICARE, OTHER ==
[~2020-11-10] VITALS: Ht 167.6 cm; Wt 109.8 kg
[2020-11-10 05:20] VITALS: BP 103/49
[2020-11-10] MEDS ORDERED: LANTUS SUBQ (05:25)
[2020-11-10 06:19] LABS: URINE BILIRUBIN NEGATIVE (Negative); URINE BLOOD 2+ (Negative); URINE CLARITY CLEAR; URINE COLOR YELLOW; URINE GLUCOSE-RANDOM 2+ (Negative); URINE KETONES NEGATIVE (Negative); URINE PROTEIN 1+ (Negative); URINE SPECIFIC GRAVITY 1.015 (1.005-1.030); URINE UROBILINOGEN 0.2 E.U./dl (0.2-1.0)
[2020-11-10 06:28] LABS: URINE LEUKOCYTES-REFLEX 3+ (Negative); URINE NITRITE-REFLEX POSITIVE (Negative)
[2020-11-10 06:34] LABS: CASTS None Seen /LPF (None Seen); MUCUS 0-3 Light strn/LPF (None Seen); SQUAMOUS 0-3 Few /LPF (0-3); URINE RBC 3-10 Few /HPF (0-2)
[2020-11-10 06:35] LABS: ABSOLUTE EOSINOPHILS 0.1 thou/uL (0.0-0.7); ABSOLUTE LYMPHOCYTES 1.2 thou/uL (0.8-5.3); ABSOLUTE MONOCYTES 0.7 thou/uL (0.0-1.2); ABSOLUTE NEUTROPHILS 10.4 thou/uL (1.6-8.1); BASOPHILS 0.4 %; EOSINOPHILS 0.5 %; HEMATOCRIT 34.5 % (37.0-47.0); HEMOGLOBIN 11.6 gm/dL (12.0-15.0); LYMPHOCYTES 9.4 %; MCH 29.9 pg (26.0-34.0); MCHC 33.7 g/dL (28.0-37.0); MCV 88.7 fL (80.0-100.0); MONOCYTES 5.7 %; MPV 7.6 fl. (7.2-11.1); NUCLEATED RBCS 0 /100WBC; PLATELET COUNT* 182 thou/uL (150-400); RBC 3.89 mil/uL (4.20-5.00); WBC 12.4 thou/uL (4.0-11.0)
[2020-11-10 06:35] LABS: CRYSTALS None Seen /LPF (None Seen)
[2020-11-10 06:41] LABS: CALCIUM 8.7 mg/dL (8.5-10.1); CREATININE 2.6 mg/dL (0.6-1.3)
[2020-11-10 06:42] LABS: POTASSIUM 6.9 mmol/L (3.5-5.1)
[2020-11-10 09:25] LABS: CALCIUM 8.7 mg/dL (8.5-10.1); CREATININE 2.6 mg/dL (0.6-1.3)
[2020-11-10 09:30] LABS: POTASSIUM 7.3 mmol/L (3.5-5.1)
[2020-11-10 11:23] VITALS: BP 172/79
[2020-11-10] MEDS ORDERED: SPIRONOLACTONE25 MG PO (13:46)
[2020-11-10] MEDS ORDERED: PROZAC20 M1 PO (13:48)
[2020-11-10] MEDS ORDERED: HYDROCHLOROTHIA50 MG PO (13:48)
[2020-11-10] MEDS ORDERED: LEVEMIR FL100 UNIT/2 SUBQ (13:49)
[2020-11-10] MEDS ORDERED: NITROSTAT0.4 M1 SUBLING (13:49)
[2020-11-10] MEDS ORDERED: NORCO5 PO (13:50)
[2020-11-10 15:23] VITALS: BP 180/79
[2020-11-10 19:15] VITALS: BP 126/54
[2020-11-10 22:11] VITALS: BP 155/70
[2020-11-11 00:55] LABS: HEMATOCRIT 32.6 % (37.0-47.0); MCH 30.1 pg (26.0-34.0); MCHC 33.9 g/dL (28.0-37.0); MCV 88.7 fL (80.0-100.0); MPV 7.5 fl. (7.2-11.1); RBC 3.67 mil/uL (4.20-5.00); RDW-CV 14.1 % (10.5-14.5); WBC 12.4 thou/uL (4.0-11.0)
[2020-11-11 01:00] LABS: CALCIUM 8.6 mg/dL (8.5-10.1); CREATININE 2.2 mg/dL (0.6-1.3)
[2020-11-11 01:13] LABS: POTASSIUM 5.2 mmol/L (3.5-5.1)
[2020-11-11 01:25] VITALS: BP 166/68
[2020-11-11 06:43] VITALS: BP 144/68
[2020-11-11 08:00] VITALS: BP 127/64
--- NOTE | 2020-11-11 09:46 | EKG ---
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1950 Requested By: Chelle Webster Order Number: [id number] MD: Ga Gilliam Measurements Intervals [place] Rate: 79 P: 39 OR: 212 QRS: -60 QRSD: 131 T: 56 QT: 424 QTc: 487 Interpretive Statements Sinus rhythm Borderline prolonged OR interval left anterior fasicular block Compared to ECG 04/22/2020 20:00:19 no change Electronically Signed On 11-11-2020 9:46:09 CDT by Ga Gilliam [email or web address] <ELECTRONICALLY SIGNED> By: Ga Gilliam MD, [facility] 11/11/20 0946 0650 0650 Ga Gilliam MD, [facility] /EPI
[2020-11-11 12:00] VITALS: BP 114/55
[2020-11-11 16:00] VITALS: BP 135/68
[2020-11-11 20:03] VITALS: BP 168/53
[2020-11-12 00:32] VITALS: BP 119/51
[2020-11-12 04:00] VITALS: BP 159/73
[2020-11-12 06:12] LABS: HEMATOCRIT 29.5 % (37.0-47.0); MCH 30.1 pg (26.0-34.0); MCV 88.6 fL (80.0-100.0); MPV 7.7 fl. (7.2-11.1); RBC 3.33 mil/uL (4.20-5.00); RDW-CV 14.1 % (10.5-14.5); WBC 9.4 thou/uL (4.0-11.0)
[2020-11-12 06:22] LABS: CREATININE 1.5 mg/dL (0.6-1.3); POTASSIUM 4.4 mmol/L (3.5-5.1)
[2020-11-12 08:00] VITALS: BP 145/72
[2020-11-12 12:00] VITALS: BP 155/78
[2020-11-12 16:09] VITALS: BP 126/57
[2020-11-12 20:00] VITALS: BP 144/73
[2020-11-13 00:01] VITALS: BP 150/44; BP 162/81
[2020-11-13 04:26] VITALS: BP 154/84
[2020-11-13 04:54] LABS: HEMATOCRIT 29.1 % (37.0-47.0); HEMOGLOBIN 10.1 gm/dL (12.0-15.0); MCH 30.4 pg (26.0-34.0); MCHC 34.7 g/dL (28.0-37.0); MCV 87.5 fL (80.0-100.0); MPV 7.5 fl. (7.2-11.1); RBC 3.33 mil/uL (4.20-5.00); RDW-CV 13.9 % (10.5-14.5); WBC 8.7 thou/uL (4.0-11.0)
[2020-11-13 05:01] LABS: CALCIUM 8.3 mg/dL (8.5-10.1); CREATININE 1.3 mg/dL (0.6-1.3); POTASSIUM 4.1 mmol/L (3.5-5.1)
[2020-11-13 08:00] VITALS: BP 110/68
[2020-11-13] MEDS ORDERED: LEVEMIR FL100 UNIT/2 SUBQ (09:26)
[2020-11-13] MEDS ORDERED: CEFDINIR300 MG PO (09:26)
[2020-11-13 11:45] VITALS: BP 119/55
[2020-11-13 11:55] VITALS: BP 110/68
[2020-11-13 13:04] VITALS: BP 110/68
== END 2020-11-13 14:28 | disposition home health service (06) | DRG 871 ==
LOC: M.ERS 05:15 → M.TBA-ER 09:05 → M.2W 09:05
PROVIDERS: Emergency Medicine; Family Medicine; ADMIT Internal Medicine; ATTEND Internal Medicine
DX: A41.9 Sepsis, unspecified organism (principal); N17.0 Acute kidney failure with tubular necrosis; N39.0 Urinary tract infection, site not specified; E87.5 Hyperkalemia; S20.229A Contusion of unspecified back wall of thorax, initial encounter; E11.65 Type 2 diabetes mellitus with hyperglycemia; I25.10 Atherosclerotic heart disease of native coronary artery without angina pectoris; M19.90 Unspecified osteoarthritis, unspecified site; E66.9 Obesity, unspecified; Z20.822 Contact with and (suspected) exposure to COVID-19; E11.40 Type 2 diabetes mellitus with diabetic neuropathy, unspecified; N18.9 Chronic kidney disease, unspecified; I12.9 Hypertensive chronic kidney disease with stage 1 through stage 4 chronic kidney disease, or unspecified chronic kidney disease; E11.22 Type 2 diabetes mellitus with diabetic chronic kidney disease; E11.51 Type 2 diabetes mellitus with diabetic peripheral angiopathy without gangrene; T50.905A Adverse effect of unspecified drugs, medicaments and biological substances, initial encounter; W01.0XXA Fall on same level from slipping, tripping and stumbling without subsequent striking against object, initial encounter; Y93.01 Activity, walking, marching and hiking; B96.20 Unspecified Escherichia coli [E. coli] as the cause of diseases classified elsewhere; Z68.39 Body mass index [BMI] 39.0-39.9, adult; Z95.5 Presence of coronary angioplasty implant and graft; Z79.899 Other long term (current) drug therapy; Z79.84 Long term (current) use of oral hypoglycemic drugs; Y92.091 Bathroom in other non-institutional residence as the place of occurrence of the external cause; Y99.8 Other external cause status

== ENCOUNTER 2021-04-14 11:18 | Emergency (ER) | payer MEDICARE, OTHER ==
[~2021-04-14] VITALS: Ht 167.6 cm; Wt 108.9 kg
[~2021-04-14 11:18] MED LIST changes: +CEFDINIR300 MG PO; +HYDROCHLOROTHIA50 MG PO; +LANTUS SUBQ; +LEVEMIR FL100 UNIT/2 SUBQ; +NITROSTAT0.4 M1 SUBLING; +NORCO5 PO; +PROZAC20 M1 PO
[2021-04-14 11:40] VITALS: BP 146/47
[2021-04-14] MEDS ORDERED: DORYX MPC120 MG PO (11:43)
== END 2021-04-14 15:14 | disposition left against medical advice (07) ==
LOC: M.ERS 11:18
DX: L08.89 Other specified local infections of the skin and subcutaneous tissue (principal); Z53.21 Procedure and treatment not carried out due to patient leaving prior to being seen by health care provider